=== PATIENT | female | born 1995 | race Caucasian/White ===

== ENCOUNTER 2021-06-05 10:34 | Inpatient (IN) | payer OTHER ==
[2021-06-05] VITALS (35 sets, daily range): BP systolic 95–136; BP diastolic 49–81; PULSE 68–112; TEMP 98.2–98.6
[~2021-06-05] VITALS: Ht 160 cm; Wt 97.3 kg
--- NOTE | 2021-06-05 10:45 | NUR ---
1045-39.2 WEEK G3L2 Patient of Dr. Perdomo ambulatory to LDR 5 with complaints of contractions off and on since last night that picked up at 0900 and are stronger. Reports history of fast labor. SVE /-[address] Chan updtaed who is on unit. Orders to admit and start pen G per GBS + protocol reccieved. 1105-Dr. Chan to room. Bedside sono by confirmed vertex. IV attempt by Silvia DUGGAN x2. Difficulty with IV start. Jeet ANDERSON notified and requested for IV start. 1125-IV to right AC by Jeet ANDERSON. IVF and Pen G started,see EMAR. Assessment complete. 1130-Reported off to OLGA LIDIA Frias who assumes care of patient at this time.
[2021-06-05] MEDS ORDERED: VALTREX1 GM PO (11:21)
[2021-06-05] MEDS ORDERED: PRENATAL (11:21)
--- NOTE | 2021-06-05 11:35 | NUR ---
1135- Bedside report received from Chichi and Silvia. Consent forms explained and signed by Pt. 1144- Pt assisted to standing at side of bed. Sheet changed. Pt sits on side of bed for epidural placment. Kristy Hyde CRNA at bedside. O2 sat monitor placed on Pt, tracing maternal HR. 1154- Single shot, see anesthesia record. 1258- O2 sat monitor off. Pt assited to semi-fowlers with WL. EFM and TOCO adjusted. This RN remains at bedside monitoring VS.
--- NOTE | 2021-06-05 12:15 | NUR ---
1210- FHR variable decels noted. Pt assited to LL, EFM adjusted. FHR returned to baseline.
[2021-06-05 13:10] LABS: BASO # 0.1 K/mm3 (0.0-0.2); BASO % 0.6 % (0.0-2.0); EOS # 0.1 K/mm3 (0.0-0.7); EOS % 0.8 % (0.0-4.0); GRAN # 7.3 K/mm3 (1.4-6.5); GRAN % 71.3 % (42.2-75.2); HEMOGLOBIN 11.1 g/dl (12.5-16.0); MEAN CELL VOLUME 90 fl (80.0-100.0); MEAN CORPUSCULAR HEMOGLOBIN 29 pg (27-31); MEAN CORPUSCULAR HGB CONC 33 g/dl (33.0-37.0); MEAN PLATELET VOLUME 13.1 fl (7.4-10.4); MONO # 0.8 K/mm3 (0.1-0.6); MONO % 7.7 % (1.7-9.3); PLATELET COUNT 232 K/mm3 (130-400); RED BLOOD COUNT 3.79 M/mm3 (4.10-5.30); REDCELL DISTRIBUTION WIDTH-CV 14.6 % (11.5-14.5)
[2021-06-05 13:11] LABS: HEMATOCRIT 34.2 % (37.0-47.0)
--- NOTE | 2021-06-05 15:15 | NUR ---
1509- Dr hCan at bedside. SVE /-1, AROM, clear fluid. Pt repositioned.
--- NOTE | 2021-06-05 16:55 | NUR ---
164- Osullivan removed without difficulty. Pt and room prepped for delivery. 1647- Lee Dawson Nursery RN at bedside. Dr Chan at bedside. Pt begins pushing with UCs. 1654- of viable male infant. Infant to mother's abd, tended to by nursery RN. Cord clamped and cut. Infant placed skin to skin with mother. Cord blood collected. 1701- Israel extraction of placenta. Pitocin started at 333ml/hr. Fundus massaged to firm by . First degree repaired. Pericare completed by this RN. Clean chux and ice pack under Pt. Pt repositioned to high fowlers.
[2021-06-06] VITALS: BP 105/54; PULSE 87; TEMP 98.5
[2021-06-06 04:30] VITALS: BP 106/59; PULSE 90; TEMP 98.1
[2021-06-06 06:31] LABS: HEMOGLOBIN 10.9 g/dl (12.5-16.0)
[2021-06-06 06:38] LABS: HEMATOCRIT 34.6 % (37.0-47.0)
[2021-06-06 07:30] VITALS: BP 123/76; PULSE 91; TEMP 98.3
--- NOTE | 2021-06-06 10:14 | NUR ---
Initial visit; Patient thanked Shoe Turner for offering congratulations and God's blessings for the of her son. Shoe Turner thanked family for choosing [facility].
[2021-06-06 11:32] VITALS: BP 120/68; PULSE 84; TEMP 98.1
[2021-06-06 16:32] VITALS: BP 132/74; PULSE 88; TEMP 97.8
--- NOTE | 2021-06-06 18:07 | NUR ---
DISCHARGE TEACHING COMPLETED. EDUCATED ON FOLLOW UP APPOINTMENT. QUESTIONS INVITED AND ANSWERED.
== END 2021-06-06 18:20 | disposition home or self-care (01) | DRG 806 ==
LOC: LDRO 10:34 → LDR 11:03 → OB 12:22 → LDRO 12:22 → OB 19:41
PROVIDERS: ADMIT Obstetrics & Gynecology
PROC: 10E0XZZ Delivery of Products of Conception, External Approach (ICD-10-PCS; principal; 2021-06-05)
PROC: 10D17Z9 Manual Extraction of Products of Conception, Retained, Via Natural or Artificial Opening (ICD-10-PCS; 2021-06-05)
PROC: 10907ZC Drainage of Amniotic Fluid, Therapeutic from Products of Conception, Via Natural or Artificial Opening (ICD-10-PCS; 2021-06-05)
PROC: 0UQGXZZ Repair Vagina, External Approach (ICD-10-PCS; 2021-06-05)
DX: O99.824 Streptococcus B carrier state complicating childbirth (principal); O98.52 Other viral diseases complicating childbirth; Z37.0 Single live birth; B00.9 Herpesviral infection, unspecified; O71.4 Obstetric high vaginal laceration alone; Z23 Encounter for immunization; Z3A.39 39 weeks gestation of pregnancy
CPT/HCPCS: J0690; J2540; J2590; J2795; J7120

== ENCOUNTER → 2021-06-10 | Outpatient (CLI) | payer OTHER ==
[~2021-06-10] MED LIST: PRENATAL; VALTREX1 GM PO
== END ==
LOC: COL.VAS 09:34
DX: M79.661 Pain in right lower leg (principal)